=== PATIENT | male | born 1965 | race Native Hawaiian/Other Pacific Islander ===

== ENCOUNTER 2019-08-01 20:15 | Emergency (ER) | payer OTHER ==
[~2019-08-01] VITALS: Ht 185.4 cm; Wt 95.3 kg
[2019-08-01 20:53] LABS: PLATELET COUNT 259 K/uL (142-355)
[2019-08-01 21:09] LABS: POTASSIUM 4.6 mmol/L (3.6-5.2)
[2019-08-01 22:14] VITALS: BP 110/68; TEMP 98.3
[2019-08-01] MEDS ORDERED: TYLENOL325 MG PO (23:35)
[2019-08-01] MEDS ORDERED: ERGOCALCIF50000 UNIT PO (23:36)
[2019-08-01] MEDS ORDERED: HUMALOG KW100 UNIT/M SC (23:37)
[2019-08-01] MEDS ORDERED: ALBUSOL INH (23:38)
[2019-08-01] MEDS ORDERED: ZESTRIL40 MG PO (23:39)
[2019-08-01] MEDS ORDERED: ALUMSUS6 PO (23:44)
[2019-08-01] MEDS ORDERED: OXYB5TAB64 PO (23:45)
[2019-08-01] MEDS ORDERED: TRAM50TA PO (23:46)
[2019-08-01] MEDS ORDERED: DALIRESP500 MC1 PO (23:46)
[2019-08-01] MEDS ORDERED: TAMS0.4C PO (23:46)
[2019-08-01] MEDS ORDERED: ASPIR-8181 MG PO (23:47)
[2019-08-01] MEDS ORDERED: SPIR50TA8 PO (23:47)
[2019-08-01] MEDS ORDERED: ELIQUIS5 MG PO (23:48)
[2019-08-01] MEDS ORDERED: CARV25TA PO (23:48)
[2019-08-01] MEDS ORDERED: AMLODIPINE BESYLATE PO (23:49)
[2019-08-01] MEDS ORDERED: LIPITOR80 MG PO (23:49)
[2019-08-01] MEDS ORDERED: ALPR0.5T24 PO (23:50)
[2019-08-01] MEDS ORDERED: LEXAPRO20 MG PO (23:50)
[2019-08-01] MEDS ORDERED: MIRAPEX0.125 MG PO (23:51)
[2019-08-11] MEDS ORDERED: RISP0.25 PO (10:06)
[2019-08-11] MEDS ORDERED: OXCARBAZEPIN300 MG PO (10:06)
[2019-08-11] MEDS ORDERED: VITAMIN D50000 UNIT PO (10:07)
[2019-08-11] MEDS ORDERED: DIVA250T2 PO (10:08)
[2019-08-11] MEDS ORDERED: DICL1GEL2 TOP (10:09)
[2019-08-11] MEDS ORDERED: BUSP5TAB2 PO (10:10)
== END 2019-08-01 22:14 | disposition other institution (70) ==
LOC: EDBD 20:15 → ED 20:15
PROVIDERS: Emergency Medicine
DX: E86.0 Dehydration (principal); I50.9 Heart failure, unspecified; Z04.6 Encounter for general psychiatric examination, requested by authority
CPT/HCPCS: 36415; 80053; 81000; 85027; 93005; 94664; 94760; 99285